=== PATIENT | female | born 1945 | race Caucasian/White ===

== ENCOUNTER 2018-01-25 09:48 | Inpatient (IN) ==
[2018-01-25] MEDS ORDERED: MORPHINE 4 MG/1 ML VIAL IV STA (11:10)
[2018-01-25] MEDS ORDERED: SODIUM CHLORIDE 0.9% 500 ML IV STA (11:10)
[2018-01-25] MEDS ORDERED: methylPREDNISolone SOD SUC 125 MG/2 ML VIAL IV STA (11:12)
[2018-01-25 11:21] LABS: Basophils % 0.3 % (0.0-0.8); Hematocrit 33.6 VOL% (35.7-47.0); Hemoglobin 10.2 GM/DL (12.0-16.0); Immature Granulocytes % 0.4 %; Immature Granulocytes Absolute 0.05 #; Lymphocytes # 0.5 10*3/uL (1.4-4.0); Lymphocytes % 3.6 % (21.3-54.2); Mean Corpuscular HGB Conc 30.4 GM/DL (32-36); Mean Corpuscular Hemoglobin 25 PG (27-34); Mean Corpuscular Volume 80.8 FL (87-102); Mean Platelet Volume 11.6 FL (9.6-12.0); Monocytes # 1.1 10*3/uL (0.11-0.8); Monocytes % 7.9 % (1.7-12.7); Neutrophils # 11.8 10*3/uL (1.4-7.4); Neutrophils % 87.8 % (38.7-73.9); Platelet Count 216 T/CUMM (130-400); Red Blood Count 4.16 MC/CUMM (3.8-5.5); White Blood Count 13.4 T/CUMM (4-12)
[2018-01-25 11:30] LABS: Albumin 3.6 G/DL (3.4-5.0); Bilirubin,Total 1.4 MG/DL (0.2-1.0); Calcium 9.1 MG/DL (8.5-10.1); Osmolality,Calculated 282.4 MOS/KG (273-304); Potassium 3.7 MMOL/L (3.5-5.1); Total Protein 8.5 G/DL (6.4-8.3)
[2018-01-25 11:55] LABS: Polychromasia Few; Segmented Neutrophils 92 % (50-85); Total Cells Counted 100
[2018-01-25 11:56] LABS: Hypochromasia Slight; Platelet Estimate Adequate; Stomatocytes Few
[2018-01-25] MEDS ORDERED: ENOXAPARIN 30 MG/0.3 ML SYRINGE IV STA (12:47)
[2018-01-25] MEDS ORDERED: ZALEPLON 5 MG CAPSULE PO PRN (12:58)
[2018-01-25] MEDS ORDERED: MORPHINE 4 MG/1 ML VIAL IV PRN (12:58)
[2018-01-25] MEDS ORDERED: ACETAMINOPHEN 325 MG TABLET PO PRN (12:58)
[2018-01-25] MEDS: ONDANSETRON 4 MG/2 ML VIAL IV PRN ×2 (14:02→16:13)
[2018-01-25] MEDS: SODIUM CHLORIDE 0.9% 1,000 ML IV SCH ×2 (14:17→23:01)
[2018-01-25] MEDS: FAMOTIDINE 20 MG/2 ML VIAL IV SCH (14:18)
[2018-01-25] MEDS: MEROPENEM 1,000 MG in SODIUM CHLORIDE 0.9% 100 ML IV SCH ×2 (14:18→22:01)
[2018-01-25] MEDS ORDERED: DIAZEPAM 5 MG TABLET PO ONE (16:11)
[2018-01-25] MEDS ORDERED: POTASSIUM CHLORIDE RIDER 10 MEQ in PREMIX 1 EACH IV PRN (16:11)
[2018-01-25] MEDS ORDERED: MAGNESIUM SULF RIDER 2 GM in PREMIX 1 EACH IV PRN (16:11)
[2018-01-25] MEDS ORDERED: diphenhydrAMINE CAP 25 MG CAPSULE PO ONE (16:11)
[2018-01-25] MEDS: ENOXAPARIN 80 MG/0.8 ML SYRINGE SUBCUT SCH (16:59)
[2018-01-26] MEDS: FAMOTIDINE 20 MG/2 ML VIAL IV SCH ×2 (01:40→14:33)
[2018-01-26 04:49] LABS: Basophils % 0.1 % (0.0-0.8); Hematocrit 27.2 VOL% (35.7-47.0); Hemoglobin 8.3 GM/DL (12.0-16.0); Immature Granulocytes % 0.4 %; Immature Granulocytes Absolute 0.06 #; Lymphocytes # 0.4 10*3/uL (1.4-4.0); Mean Corpuscular HGB Conc 30.5 GM/DL (32-36); Mean Corpuscular Hemoglobin 25 PG (27-34); Mean Corpuscular Volume 81.4 FL (87-102); Mean Platelet Volume 11.8 FL (9.6-12.0); Monocytes % 6.7 % (1.7-12.7); Neutrophils # 13.1 10*3/uL (1.4-7.4); Neutrophils % 89.8 % (38.7-73.9); Platelet Count 165 T/CUMM (130-400); Red Blood Count 3.34 MC/CUMM (3.8-5.5); Red Cell Distribution Width 15.9 % (9.3-17.3); White Blood Count 14.6 T/CUMM (4-12)
[2018-01-26] MEDS: ENOXAPARIN 80 MG/0.8 ML SYRINGE SUBCUT SCH (04:53)
[2018-01-26] MEDS: ONDANSETRON 4 MG/2 ML VIAL IV PRN (04:53)
[2018-01-26 05:17] LABS: Alanine Aminotransferase 12 U/L (13-56); Albumin 2.7 G/DL (3.4-5.0); Alkaline Phosphatase 117 U/L (45-117); Aspartate Amino Transferase 13 U/L (0-37); Blood Urea Nitrogen 19 MG/DL (7-18); Calcium 8.6 MG/DL (8.5-10.1); Glucose 110 MG/DL (74-106); Osmolality,Calculated 285.1 MOS/KG (273-304); Potassium 4.4 MMOL/L (3.5-5.1); Sodium 142 MMOL/L (136-145); Total Protein 6.6 G/DL (6.4-8.3); Troponin I < 0.015 NG/ML (0.00-0.045)
[2018-01-26 05:36] LABS: ABG Base Excess -1.4 MMOL/L (-2.5-2.5); ABG HCO3 23.2 MMOL/L (20-26); ABG Oxygen Saturation 96.6 % (95-100); ABG PCO2 37.4 MM HG (35-48); ABG PH 7.399 (7.35-7.45); ABG PO2 84.6 MM HG (80-95); ABG TCO2 21.3 MMOL/L (23-27); Allen Test Positive
[2018-01-26 05:37] LABS: Band Neutrophils 3 % (0-10); Lymphocytes 3 % (20-55); Myelocytes 1 %; Segmented Neutrophils 88 % (50-85); Total Cells Counted 100
[2018-01-26] MEDS: MEROPENEM 1,000 MG in SODIUM CHLORIDE 0.9% 100 ML IV SCH ×3 (05:37→22:57)
[2018-01-26 05:38] LABS: Hypochromasia 2+; Microcytosis 1+; Polychromasia Slight
[2018-01-26 05:39] LABS: Platelet Estimate Adequate
[2018-01-26] MEDS ORDERED: diphenhydrAMINE CAP 25 MG CAPSULE PO ONE (06:30)
[2018-01-26] MEDS ORDERED: DIAZEPAM 5 MG TABLET PO ONE (06:30)
[2018-01-26] MEDS: SODIUM CHLORIDE 0.9% 1,000 ML IV SCH ×3 (07:04→22:19)
[2018-01-26] MEDS ORDERED: ALTEPLASE 6 MG in SODIUM CHLORIDE 0.9% 120 ML IV SCH (08:00)
[2018-01-26] MEDS ORDERED: LIDOCAINE 1% 20 ML VIAL ONE (08:01)
[2018-01-26] MEDS ORDERED: HYDROmorphone 2 MG/1 ML VIAL ONE (08:02)
[2018-01-26] MEDS ORDERED: MIDAZOLAM 2 MG/2 ML VIAL ONE (08:02)
[2018-01-26] MEDS ORDERED: ONDANSETRON 4 MG/2 ML VIAL ONE (09:00)
[2018-01-26] MEDS: APIXABAN 5 MG TABLET PO SCH ×2 (18:08→22:30)
[2018-01-26] MEDS ORDERED: SODIUM CHLORIDE 0.9% 500 ML IV ONE (21:53)
[2018-01-27] MEDS: FAMOTIDINE 20 MG/2 ML VIAL IV SCH (02:09)
[2018-01-27] MEDS: SODIUM CHLORIDE 0.9% 1,000 ML IV SCH ×2 (02:10→06:13)
[2018-01-27] MEDS: MEROPENEM 1,000 MG in SODIUM CHLORIDE 0.9% 100 ML IV SCH ×3 (05:09→23:07)
[2018-01-27] MEDS ORDERED: DEXAMETHASONE INJ 20 MG in SODIUM CHLORIDE 0.9% 50 ML IV ONE (08:19)
[2018-01-27] MEDS: APIXABAN 5 MG TABLET PO SCH ×2 (10:08→20:20)
[2018-01-27] MEDS: FAMOTIDINE 20 MG TABLET PO SCH (20:22)
[2018-01-28] MEDS: MEROPENEM 1,000 MG in SODIUM CHLORIDE 0.9% 100 ML IV SCH (05:27)
[2018-01-28 05:40] LABS: Basophils % 0.1 % (0.0-0.8); Hematocrit 27.4 VOL% (35.7-47.0); Hemoglobin 8.3 GM/DL (12.0-16.0); Immature Granulocytes % 0.9 %; Immature Granulocytes Absolute 0.09 #; Lymphocytes # 0.4 10*3/uL (1.4-4.0); Mean Corpuscular HGB Conc 30.3 GM/DL (32-36); Mean Corpuscular Hemoglobin 25 PG (27-34); Mean Corpuscular Volume 80.8 FL (87-102); Monocytes # 0.3 10*3/uL (0.11-0.8); Monocytes % 3.2 % (1.7-12.7); Neutrophils # 9.3 10*3/uL (1.4-7.4); Neutrophils % 91.8 % (38.7-73.9); Platelet Count 189 T/CUMM (130-400); Red Blood Count 3.39 MC/CUMM (3.8-5.5); White Blood Count 10.2 T/CUMM (4-12)
[2018-01-28 06:08] LABS: Albumin 2.6 G/DL (3.4-5.0); Bilirubin,Total 0.4 MG/DL (0.2-1.0); Calcium 8.6 MG/DL (8.5-10.1); Potassium 4.1 MMOL/L (3.5-5.1); Total Protein 6.7 G/DL (6.4-8.3)
[2018-01-28 06:11] LABS: Hypochromasia 2+; Lymphocytes 3 % (20-55); Segmented Neutrophils 94 % (50-85); Total Cells Counted 100
[2018-01-28 06:12] LABS: Anisocytosis 1+; Microcytosis 1+; Platelet Estimate Adequate
[2018-01-28 07:36] VITALS: BP 122/79
[2018-01-28] MEDS: APIXABAN 5 MG TABLET PO SCH (09:14)
[2018-01-28] MEDS: FAMOTIDINE 20 MG TABLET PO SCH (09:14)
== END 2018-01-28 11:11 | disposition home or self-care (01) | DRG 175 ==
LOC: N.ED 09:48 → SUATTDRO 12:44 → N.EDINP 12:44 → N.CC 13:27 → N.5E 01-27 15:28
PROVIDERS: ADMIT Internal Medicine; ATTEND Internal Medicine

== ENCOUNTER 2018-09-14 16:00 | Inpatient (IN) ==
[2018-09-14] MEDS ORDERED: ONDANSETRON 4 MG/2 ML VIAL IV STA (16:18)
[2018-09-14] MEDS ORDERED: SODIUM CHLORIDE 0.9% 1,000 ML IV STA (16:18)
[2018-09-14 17:07] LABS: Apearance,Urine CLEAR (Clear); Bacteria,Urine Occasional /HPF (Few); Bilirubin,Urine Negative (Negative); Blood, Urine Negative (Negative); Glucose,Urine (UA) Negative (Negative); Ketones,Urine 20 mg/dL (Negative); Mucus,Urine Occasional /LPF (Occasional); Nitrite,Urine Negative (Negative); Protein,Urine Negative; RBC,Urine 4 /HPF (0-4); Urine Color Yellow (Yellow); Urine Specific Gravity 1.015 (1.001-1.035); Urine Urobilinogen < 2.0 EU/DL (0.2-1.0); WBC,Urine 10 /HPF (0-6)
[2018-09-14 17:13] LABS: Basophils % 0.2 % (0.0-0.8); Eosinophils % 0.8 % (0.00-10.9); Hematocrit 28.3 VOL% (35.7-47.0); Hemoglobin 8.9 GM/DL (12.0-16.0); Immature Granulocytes Absolute 0.05 #; Lymphocytes # 0.3 10*3/uL (1.4-4.0); Lymphocytes % 5.5 % (21.3-54.2); Mean Corpuscular HGB Conc 31.4 GM/DL (32-36); Mean Corpuscular Volume 92.8 FL (87-102); Mean Platelet Volume 10.9 FL (9.6-12.0); Monocytes % 9.2 % (1.7-12.7); Neutrophils % 83.3 % (38.7-73.9); Platelet Count 195 T/CUMM (130-400); Red Blood Count 3.05 MC/CUMM (3.8-5.5); Red Cell Distribution Width 19.5 % (9.3-17.3); White Blood Count 4.9 T/CUMM (4-12)
[2018-09-14 17:38] LABS: Albumin 2.6 G/DL (3.4-5.0); Bilirubin,Total 0.9 MG/DL (0.2-1.0); Calcium 8.7 MG/DL (8.5-10.1); Osmolality,Calculated 285.7 MOS/KG (273-304); Total Protein 6.6 G/DL (6.4-8.3)
[2018-09-14] MEDS ORDERED: POTASSIUM CHLORIDE 20 MEQ/15 ML UDCUP PO ONE (19:18)
[2018-09-14] MEDS: SODIUM CHLORIDE 0.9% 1,000 ML IV SCH (20:41)
[2018-09-14] MEDS: APIXABAN 5 MG TABLET PO SCH (21:38)
[2018-09-15 04:44] LABS: Basophils % 0.2 % (0.0-0.8); Eosinophils # 0.1 10*3/uL (0.0-0.87); Eosinophils % 1.4 % (0.00-10.9); Hematocrit 26.2 VOL% (35.7-47.0); Hemoglobin 8.1 GM/DL (12.0-16.0); Immature Granulocytes % 0.7 %; Immature Granulocytes Absolute 0.03 #; Lymphocytes # 0.2 10*3/uL (1.4-4.0); Mean Corpuscular HGB Conc 30.9 GM/DL (32-36); Mean Corpuscular Volume 93.9 FL (87-102); Mean Platelet Volume 10.8 FL (9.6-12.0); Monocytes % 10.8 % (1.7-12.7); Neutrophils % 81.9 % (38.7-73.9); Platelet Count 181 T/CUMM (130-400); Red Blood Count 2.79 MC/CUMM (3.8-5.5); Red Cell Distribution Width 19.5 % (9.3-17.3); White Blood Count 4.2 T/CUMM (4-12)
[2018-09-15 05:20] LABS: Albumin 2.4 G/DL (3.4-5.0); Bilirubin,Total 0.8 MG/DL (0.2-1.0); Calcium 8.1 MG/DL (8.5-10.1); Osmolality,Calculated 287.6 MOS/KG (273-304); Thyroid Stimulating Hormone 1.64 uIU/ml (0.358-3.74); Total Protein 5.9 G/DL (6.4-8.3)
[2018-09-15] MEDS: PANTOPRAZOLE 40 MG TABLET PO SCH (08:58)
[2018-09-15] MEDS: APIXABAN 5 MG TABLET PO SCH ×2 (08:58→20:48)
[2018-09-15] MEDS: CYANOCOBALAMIN 100 MCG TABLET PO SCH (08:58)
[2018-09-15] MEDS: POTASSIUM CHLORIDE 20 MEQ/15 ML UDCUP PO SCH (09:06)
[2018-09-15] MEDS: SODIUM CHLORIDE 0.9% 1,000 ML IV SCH (15:00)
[2018-09-15] MEDS ORDERED: POTASSIUM CHLORIDE 20 MEQ/15 ML UDCUP PO PRN (16:20)
[2018-09-15] MEDS: POTASSIUM CHLORIDE 20 MEQ TABLET PO PRN ×2 (17:48→20:48)
[2018-09-15] MEDS: guaiFENesin/CODEINE 5 ML LIQUID PO PRN (20:49)
[2018-09-16] MEDS: SODIUM CHLORIDE 0.9% 1,000 ML IV SCH (09:23)
[2018-09-16] MEDS: PANTOPRAZOLE 40 MG TABLET PO SCH (09:25)
[2018-09-16] MEDS: guaiFENesin/CODEINE 5 ML LIQUID PO PRN ×2 (09:25→20:30)
[2018-09-16] MEDS: APIXABAN 5 MG TABLET PO SCH ×2 (09:25→20:25)
[2018-09-16] MEDS: CYANOCOBALAMIN 100 MCG TABLET PO SCH (09:25)
[2018-09-16] MEDS: POTASSIUM CHLORIDE 20 MEQ/15 ML UDCUP PO SCH (09:28)
[2018-09-16] MEDS: POTASSIUM CHLORIDE 20 MEQ TABLET PO PRN ×2 (11:20→14:00)
[2018-09-16] MEDS: DEXT 5% NACL 0.45% KCL 20 MEQ 20 MEQ/1,000 ML BAG IV SCH (13:58)
[2018-09-16] MEDS: LOPERAMIDE 0.2 MG/ML 30 ML/BOTTLE PO PRN (14:36)
[2018-09-16] MEDS ORDERED: MAGNESIUM SULF RIDER 4 GM in PREMIX 1 EACH IV PRN (15:47)
[2018-09-16] MEDS: MAGNESIUM SULF RIDER 2 GM in PREMIX 1 EACH IV PRN (20:26)
[2018-09-17 05:42] LABS: Calcium 8.1 MG/DL (8.5-10.1); Osmolality,Calculated 296.1 MOS/KG (273-304)
[2018-09-17] MEDS: DEXT 5% NACL 0.45% KCL 20 MEQ 20 MEQ/1,000 ML BAG IV SCH (09:12)
[2018-09-17] MEDS: APIXABAN 5 MG TABLET PO SCH ×2 (09:12→20:49)
[2018-09-17] MEDS: CYANOCOBALAMIN 100 MCG TABLET PO SCH (09:13)
[2018-09-17] MEDS: PANTOPRAZOLE 40 MG TABLET PO SCH (09:13)
[2018-09-17] MEDS: POTASSIUM CHLORIDE 20 MEQ/15 ML UDCUP PO SCH (09:13)
[2018-09-17] MEDS: MAGNESIUM SULF RIDER 2 GM in PREMIX 1 EACH IV PRN (09:13)
[2018-09-17] MEDS: ONDANSETRON 4 MG/2 ML VIAL IV PRN (11:37)
[2018-09-17] MEDS: MAGNESIUM CHLORIDE 64 MG TABLET PO SCH ×2 (13:35→20:49)
[2018-09-17] MEDS: guaiFENesin/CODEINE 5 ML LIQUID PO PRN (20:50)
[2018-09-18] MEDS ORDERED: MIDAZOLAM 2 MG/2 ML VIAL ONE (06:54)
[2018-09-18 06:55] LABS: Calcium 8.4 MG/DL (8.5-10.1); Osmolality,Calculated 288.6 MOS/KG (273-304)
[2018-09-18] MEDS ORDERED: PROMETHAZINE 25 MG/1 ML VIAL IM ONE (07:00)
[2018-09-18] MEDS ORDERED: MEPERIDINE 50 MG/1 ML VIAL IM ONE (07:00)
[2018-09-18] MEDS ORDERED: LIDOCAINE 2% VISCOUS 100 ML BOTTLE SWISH/SPIT ONE (07:30)
[2018-09-18] MEDS ORDERED: MIDAZOLAM 2 MG/2 ML VIAL IV ONE (07:30)
[2018-09-18] MEDS ORDERED: LIDOCAINE 1% 20 ML VIAL MISC INJ ONE (07:30)
[2018-09-18] MEDS ORDERED: LIDOCAINE 2% 20 ML VIAL RESP TX ONE (07:30)
[2018-09-18] MEDS: APIXABAN 5 MG TABLET PO SCH ×2 (13:03→20:08)
[2018-09-18] MEDS: MAGNESIUM CHLORIDE 64 MG TABLET PO SCH ×2 (13:03→20:14)
[2018-09-18] MEDS: CYANOCOBALAMIN 100 MCG TABLET PO SCH (13:03)
[2018-09-18] MEDS: PANTOPRAZOLE 40 MG TABLET PO SCH (13:04)
[2018-09-18] MEDS: DEXT 5% NACL 0.45% KCL 20 MEQ 20 MEQ/1,000 ML BAG IV SCH (13:06)
[2018-09-18] MEDS: SODIUM CHLORIDE 0.45% 1,000 ML IV SCH (20:08)
[2018-09-19 05:01] LABS: Basophils % 0.2 % (0.0-0.8); Eosinophils # 0.1 10*3/uL (0.0-0.87); Eosinophils % 1.8 % (0.00-10.9); Hemoglobin 7.9 GM/DL (12.0-16.0); Immature Granulocytes % 0.9 %; Immature Granulocytes Absolute 0.04 #; Lymphocytes # 0.2 10*3/uL (1.4-4.0); Lymphocytes % 5.1 % (21.3-54.2); Mean Corpuscular HGB Conc 30.4 GM/DL (32-36); Mean Corpuscular Volume 95.9 FL (87-102); Mean Platelet Volume 11.3 FL (9.6-12.0); Monocytes % 12.5 % (1.7-12.7); Neutrophils % 79.5 % (38.7-73.9); Platelet Count 189 T/CUMM (130-400); Red Blood Count 2.71 MC/CUMM (3.8-5.5); Red Cell Distribution Width 19.8 % (9.3-17.3); White Blood Count 4.5 T/CUMM (4-12)
[2018-09-19] MEDS: MAGNESIUM CHLORIDE 64 MG TABLET PO SCH ×2 (10:19→20:34)
[2018-09-19] MEDS: CYANOCOBALAMIN 100 MCG TABLET PO SCH (10:19)
[2018-09-19] MEDS: LOPERAMIDE 0.2 MG/ML 30 ML/BOTTLE PO PRN (10:20)
[2018-09-19] MEDS: APIXABAN 5 MG TABLET PO SCH ×2 (10:20→20:34)
[2018-09-19] MEDS: PANTOPRAZOLE 40 MG TABLET PO SCH (10:20)
[2018-09-19] MEDS ORDERED: SODIUM CHLORIDE 0.9% 1,000 ML IV PRN ×2 (10:40→11:35)
[2018-09-19 11:17] LABS: Calcium 8.5 MG/DL (8.5-10.1); Osmolality,Calculated 279.3 MOS/KG (273-304)
[2018-09-19] MEDS: POTASSIUM CHLORIDE 20 MEQ TABLET PO PRN ×4 (11:32→17:42)
[2018-09-19] MEDS: SODIUM CHLORIDE 0.45% 1,000 ML IV SCH (14:07)
[2018-09-19] MEDS: guaiFENesin/CODEINE 5 ML LIQUID PO PRN (20:39)
[2018-09-19] MEDS: ONDANSETRON 4 MG/2 ML VIAL IV PRN (20:58)
[2018-09-20 05:58] LABS: Basophils % 0.2 % (0.0-0.8); Eosinophils # 0.1 10*3/uL (0.0-0.87); Hematocrit 31.6 VOL% (35.7-47.0); Hemoglobin 10.2 GM/DL (12.0-16.0); Immature Granulocytes % 1.2 %; Immature Granulocytes Absolute 0.05 #; Lymphocytes # 0.2 10*3/uL (1.4-4.0); Lymphocytes % 4.4 % (21.3-54.2); Mean Corpuscular HGB Conc 32.3 GM/DL (32-36); Mean Corpuscular Volume 93.8 FL (87-102); Mean Platelet Volume 11.1 FL (9.6-12.0); Monocytes % 12.8 % (1.7-12.7); Neutrophils % 79.4 % (38.7-73.9); Platelet Count 149 T/CUMM (130-400); Red Blood Count 3.37 MC/CUMM (3.8-5.5); Red Cell Distribution Width 18.9 % (9.3-17.3); White Blood Count 4.1 T/CUMM (4-12)
[2018-09-20 06:21] LABS: Lymphocytes 4 % (20-55); Segmented Neutrophils 85 % (50-85); Total Cells Counted 100
[2018-09-20 06:22] LABS: Anisocytosis 1+; Ovalocytes 1+
[2018-09-20 06:23] LABS: Platelet Estimate Adequate
[2018-09-20 06:39] LABS: Albumin 2.2 G/DL (3.4-5.0); Bilirubin,Total 1.4 MG/DL (0.2-1.0); Calcium 8.6 MG/DL (8.5-10.1); Total Protein 5.6 G/DL (6.4-8.3)
[2018-09-20] MEDS: POTASSIUM CHLORIDE 20 MEQ TABLET PO PRN (09:59)
[2018-09-20] MEDS: PANTOPRAZOLE 40 MG TABLET PO SCH (09:59)
[2018-09-20] MEDS: guaiFENesin/CODEINE 5 ML LIQUID PO PRN ×2 (09:59→17:04)
[2018-09-20] MEDS: APIXABAN 5 MG TABLET PO SCH ×2 (09:59→21:28)
[2018-09-20] MEDS: MAGNESIUM CHLORIDE 64 MG TABLET PO SCH ×2 (09:59→21:27)
[2018-09-20] MEDS: CYANOCOBALAMIN 100 MCG TABLET PO SCH (10:00)
[2018-09-20] MEDS: SODIUM CHLORIDE 0.45% 1,000 ML IV SCH (16:03)
[2018-09-21] MEDS: SODIUM CHLORIDE 0.45% 1,000 ML IV SCH (04:59)
[2018-09-21] MEDS: APIXABAN 5 MG TABLET PO SCH ×2 (09:27→20:41)
[2018-09-21] MEDS: CYANOCOBALAMIN 100 MCG TABLET PO SCH (09:27)
[2018-09-21] MEDS: PANTOPRAZOLE 40 MG TABLET PO SCH (09:27)
[2018-09-21] MEDS: MAGNESIUM CHLORIDE 64 MG TABLET PO SCH ×2 (09:27→22:05)
[2018-09-21] MEDS: ONDANSETRON 4 MG/2 ML VIAL IV PRN (14:13)
[2018-09-21] MEDS: guaiFENesin/CODEINE 5 ML LIQUID PO PRN (20:42)
[2018-09-22] MEDS: SODIUM CHLORIDE 0.45% 1,000 ML IV SCH (01:26)
[2018-09-22] MEDS: ONDANSETRON 4 MG/2 ML VIAL IV PRN (02:06)
[2018-09-22] MEDS ORDERED: DEXAMETHASONE INJ 20 MG in SODIUM CHLORIDE 0.9% 50 ML IV ONE (08:28)
[2018-09-22] MEDS: APIXABAN 5 MG TABLET PO SCH ×2 (08:49→21:03)
[2018-09-22] MEDS: CYANOCOBALAMIN 100 MCG TABLET PO SCH (08:49)
[2018-09-22] MEDS: MAGNESIUM CHLORIDE 64 MG TABLET PO SCH ×2 (08:49→21:03)
[2018-09-22] MEDS: PANTOPRAZOLE 40 MG TABLET PO SCH (08:50)
[2018-09-22] MEDS ORDERED: SODIUM CHLORIDE 0.9% IV ONE (09:00)
[2018-09-22] MEDS ORDERED: CYCLOPHOSPHAMIDE IV ONE (09:00)
[2018-09-22] MEDS ORDERED: DOXORUBICIN IV ONE (09:00)
[2018-09-22] MEDS ORDERED: vinCRIStine 2 MG in SYRINGE 1 EACH IV ONE (09:00)
[2018-09-22 09:10] LABS: Basophils % 0.5 % (0.0-0.8); Eosinophils # 0.1 10*3/uL (0.0-0.87); Eosinophils % 1.1 % (0.00-10.9); Hematocrit 36.1 VOL% (35.7-47.0); Immature Granulocytes % 1.1 %; Immature Granulocytes Absolute 0.07 #; Lymphocytes # 0.3 10*3/uL (1.4-4.0); Lymphocytes % 4.8 % (21.3-54.2); Mean Corpuscular HGB Conc 30.5 GM/DL (32-36); Mean Platelet Volume 10.8 FL (9.6-12.0); Monocytes % 9.3 % (1.7-12.7); Neutrophils % 83.2 % (38.7-73.9); Platelet Count 187 T/CUMM (130-400); Red Blood Count 3.72 MC/CUMM (3.8-5.5); Red Cell Distribution Width 18.7 % (9.3-17.3); White Blood Count 6.3 T/CUMM (4-12)
[2018-09-22 09:28] LABS: Band Neutrophils 1 % (0-10); Eosinophils 1 % (0-10); Lymphocytes 2 % (20-55); Platelet Estimate Adequate; Segmented Neutrophils 85 % (50-85); Total Cells Counted 100
[2018-09-22 09:29] LABS: Hypochromasia 1+
[2018-09-22] MEDS: GRANISETRON 1 MG/1 ML VIAL IV SCH (11:21)
[2018-09-22] MEDS: guaiFENesin/CODEINE 5 ML LIQUID PO PRN ×2 (14:34→21:03)
[2018-09-23] MEDS: SODIUM CHLORIDE 0.45% 1,000 ML IV SCH (01:39)
[2018-09-23] MEDS ORDERED: DEXAMETHASONE INJ 20 MG in SODIUM CHLORIDE 0.9% 50 ML IV ONE (07:21)
[2018-09-23] MEDS ORDERED: SODIUM CHLORIDE 0.9% IV ONE ×3 (09:00→15:14)
[2018-09-23] MEDS ORDERED: RITUXIMAB IV ONE ×3 (09:00→15:14)
[2018-09-23] MEDS: GRANISETRON 1 MG/1 ML VIAL IV SCH (11:03)
[2018-09-23] MEDS: APIXABAN 5 MG TABLET PO SCH ×2 (11:03→20:31)
[2018-09-23] MEDS: LOPERAMIDE 0.2 MG/ML 30 ML/BOTTLE PO PRN (11:03)
[2018-09-23] MEDS: PANTOPRAZOLE 40 MG TABLET PO SCH (11:03)
[2018-09-23] MEDS: MAGNESIUM CHLORIDE 64 MG TABLET PO SCH ×2 (11:03→20:30)
[2018-09-23] MEDS: CYANOCOBALAMIN 100 MCG TABLET PO SCH (11:03)
[2018-09-24 04:47] LABS: Hematocrit 30.4 VOL% (35.7-47.0); Hemoglobin 9.8 GM/DL (12.0-16.0); Immature Granulocytes % 0.6 %; Immature Granulocytes Absolute 0.04 #; Lymphocytes # 0.1 10*3/uL (1.4-4.0); Lymphocytes % 1.6 % (21.3-54.2); Mean Corpuscular HGB Conc 32.2 GM/DL (32-36); Mean Corpuscular Volume 94.1 FL (87-102); Mean Platelet Volume 11.2 FL (9.6-12.0); Monocytes % 4.5 % (1.7-12.7); Neutrophils % 93.3 % (38.7-73.9); Platelet Count 173 T/CUMM (130-400); Red Blood Count 3.23 MC/CUMM (3.8-5.5); Red Cell Distribution Width 17.5 % (9.3-17.3); White Blood Count 6.5 T/CUMM (4-12)
[2018-09-24 05:08] LABS: Albumin 2.2 G/DL (3.4-5.0); Bilirubin,Total 0.5 MG/DL (0.2-1.0); Calcium 9.1 MG/DL (8.5-10.1); Osmolality,Calculated 285.8 MOS/KG (273-304)
[2018-09-24 05:14] LABS: Lymphocytes 2 % (20-55); Platelet Estimate Adequate; Segmented Neutrophils 94 % (50-85); Total Cells Counted 100
[2018-09-24 05:15] LABS: Hypochromasia 1+; Ovalocytes Slight
[2018-09-24] MEDS: SODIUM CHLORIDE 0.45% 1,000 ML IV SCH (05:25)
[2018-09-24] MEDS: APIXABAN 5 MG TABLET PO SCH ×2 (08:41→22:24)
[2018-09-24] MEDS: MAGNESIUM CHLORIDE 64 MG TABLET PO SCH ×2 (08:41→22:23)
[2018-09-24] MEDS: PANTOPRAZOLE 40 MG TABLET PO SCH (08:41)
[2018-09-24] MEDS: CYANOCOBALAMIN 100 MCG TABLET PO SCH (08:41)
[2018-09-24] MEDS: GRANISETRON 1 MG/1 ML VIAL IV SCH (08:41)
[2018-09-24] MEDS: ALBUTEROL/IPRATROPIUM 3 ML NEB RESP TX SCH ×3 (10:56→19:51)
[2018-09-25] MEDS: ALBUTEROL/IPRATROPIUM 3 ML NEB RESP TX SCH ×4 (00:53→19:59)
[2018-09-25] MEDS: BISACODYL 5 MG TABLET PO PRN (01:50)
[2018-09-25] MEDS: LOPERAMIDE 0.2 MG/ML 30 ML/BOTTLE PO PRN ×2 (01:52→11:26)
[2018-09-25] MEDS: ONDANSETRON 4 MG/2 ML VIAL IV PRN (06:35)
[2018-09-25 08:57] LABS: Basophils % 0.2 % (0.0-0.8); Eosinophils % 0.2 % (0.00-10.9); Hematocrit 32.2 VOL% (35.7-47.0); Immature Granulocytes % 0.4 %; Immature Granulocytes Absolute 0.02 #; Lymphocytes # 0.1 10*3/uL (1.4-4.0); Lymphocytes % 2.3 % (21.3-54.2); Mean Corpuscular HGB Conc 31.1 GM/DL (32-36); Mean Platelet Volume 11.1 FL (9.6-12.0); Monocytes % 0.8 % (1.7-12.7); Neutrophils % 96.1 % (38.7-73.9); Platelet Count 175 T/CUMM (130-400); Red Blood Count 3.32 MC/CUMM (3.8-5.5); White Blood Count 4.7 T/CUMM (4-12)
[2018-09-25] MEDS: GRANISETRON 1 MG/1 ML VIAL IV SCH (09:05)
[2018-09-25] MEDS: MAGNESIUM CHLORIDE 64 MG TABLET PO SCH ×2 (09:07→20:26)
[2018-09-25] MEDS: CYANOCOBALAMIN 100 MCG TABLET PO SCH (09:07)
[2018-09-25] MEDS: PANTOPRAZOLE 40 MG TABLET PO SCH (09:07)
[2018-09-25] MEDS: APIXABAN 5 MG TABLET PO SCH ×2 (09:07→20:25)
[2018-09-25 09:17] LABS: Band Neutrophils 3 % (0-10); Hypochromasia 1+; Lymphocytes 1 % (20-55); Platelet Estimate Adequate; Segmented Neutrophils 92 % (50-85); Total Cells Counted 100
[2018-09-26] MEDS: ALBUTEROL/IPRATROPIUM 3 ML NEB RESP TX SCH ×4 (01:20→20:07)
[2018-09-26] MEDS: ONDANSETRON 4 MG/2 ML VIAL IV PRN ×2 (05:09→18:23)
[2018-09-26] MEDS: MAGNESIUM CHLORIDE 64 MG TABLET PO SCH ×2 (08:59→20:27)
[2018-09-26] MEDS: APIXABAN 5 MG TABLET PO SCH ×2 (09:00→20:27)
[2018-09-26] MEDS: CYANOCOBALAMIN 100 MCG TABLET PO SCH (09:00)
[2018-09-26] MEDS: GRANISETRON 1 MG/1 ML VIAL IV SCH (09:00)
[2018-09-26] MEDS: PANTOPRAZOLE 40 MG TABLET PO SCH (09:00)
[2018-09-26] MEDS: ACETAMINOPHEN 325 MG TABLET PO PRN (18:29)
[2018-09-27] MEDS ORDERED: MORPHINE 4 MG/1 ML VIAL IV PRN (01:29)
[2018-09-27] MEDS: ACETAMINOPHEN 325 MG TABLET PO PRN (01:48)
[2018-09-27] MEDS: ALBUTEROL/IPRATROPIUM 3 ML NEB RESP TX SCH ×4 (02:06→20:03)
[2018-09-27] MEDS: LOPERAMIDE 0.2 MG/ML 30 ML/BOTTLE PO PRN (06:42)
[2018-09-27] MEDS: MAGNESIUM CHLORIDE 64 MG TABLET PO SCH ×2 (09:00→21:17)
[2018-09-27] MEDS: APIXABAN 5 MG TABLET PO SCH ×2 (09:00→21:17)
[2018-09-27] MEDS: CHOLECALCIFEROL 1,000 UNIT TABLET PO SCH (09:00)
[2018-09-27] MEDS: PANTOPRAZOLE 40 MG TABLET PO SCH (09:00)
[2018-09-27] MEDS: CYANOCOBALAMIN 100 MCG TABLET PO SCH (09:00)
[2018-09-27] MEDS: GRANISETRON 1 MG/1 ML VIAL IV SCH (09:00)
[2018-09-27 11:21] LABS: Basophils % 1.3 % (0.0-0.8); Eosinophils # 0.1 10*3/uL (0.0-0.87); Eosinophils % 1.7 % (0.00-10.9); Hematocrit 30.9 VOL% (35.7-47.0); Hemoglobin 9.7 GM/DL (12.0-16.0); Immature Granulocytes Absolute 0.06 #; Lymphocytes # 0.1 10*3/uL (1.4-4.0); Lymphocytes % 2.7 % (21.3-54.2); Mean Corpuscular HGB Conc 31.4 GM/DL (32-36); Mean Corpuscular Volume 95.7 FL (87-102); Mean Platelet Volume 11.3 FL (9.6-12.0); Neutrophils % 91.3 % (38.7-73.9); Platelet Count 148 T/CUMM (130-400); Red Blood Count 3.23 MC/CUMM (3.8-5.5); Red Cell Distribution Width 17.2 % (9.3-17.3)
[2018-09-27 11:43] LABS: Calcium 9.7 MG/DL (8.5-10.1); Osmolality,Calculated 282.8 MOS/KG (273-304)
[2018-09-27 13:01] LABS: Eosinophils 2 % (0-10); Hypochromasia 1+; Lymphocytes 4 % (20-55); Segmented Neutrophils 93 % (50-85); Total Cells Counted 100
[2018-09-27 13:02] LABS: Microcytosis 1+; Ovalocytes Slight; Platelet Estimate Adequate
[2018-09-27] MEDS ORDERED: FAMOTIDINE 20 MG TABLET PO ONE (17:48)
[2018-09-27] MEDS: POTASSIUM CHLORIDE 20 MEQ TABLET PO PRN ×3 (19:42→22:52)
[2018-09-28] MEDS: ALBUTEROL/IPRATROPIUM 3 ML NEB RESP TX SCH ×4 (00:41→19:00)
[2018-09-28 04:08] LABS: Basophils % 1.7 % (0.0-0.8); Eosinophils % 1.7 % (0.00-10.9); Hematocrit 28.3 VOL% (35.7-47.0); Hemoglobin 8.7 GM/DL (12.0-16.0); Immature Granulocytes % 9.5 %; Immature Granulocytes Absolute 0.11 #; Lymphocytes % 1.7 % (21.3-54.2); Mean Corpuscular HGB Conc 30.7 GM/DL (32-36); Mean Corpuscular Volume 96.3 FL (87-102); Mean Platelet Volume 10.6 FL (9.6-12.0); Monocytes % 1.7 % (1.7-12.7); Neutrophils % 83.7 % (38.7-73.9); Platelet Count 116 T/CUMM (130-400); Red Blood Count 2.94 MC/CUMM (3.8-5.5); Red Cell Distribution Width 17.2 % (9.3-17.3); White Blood Count 1.2 T/CUMM (4-12)
[2018-09-28 04:29] LABS: Calcium 8.6 MG/DL (8.5-10.1); Osmolality,Calculated 289.4 MOS/KG (273-304)
[2018-09-28 04:31] LABS: Eosinophils 2 % (0-10); Hypochromasia 1+; Lymphocytes 2 % (20-55); Microcytosis 1+; Ovalocytes Slight; Platelet Estimate Decreased; Segmented Neutrophils 95 % (50-85); Total Cells Counted 100
[2018-09-28] MEDS: LOPERAMIDE 0.2 MG/ML 30 ML/BOTTLE PO PRN (05:33)
[2018-09-28] MEDS: CYANOCOBALAMIN 100 MCG TABLET PO SCH (09:38)
[2018-09-28] MEDS: MAGNESIUM CHLORIDE 64 MG TABLET PO SCH ×2 (09:38→20:24)
[2018-09-28] MEDS: APIXABAN 5 MG TABLET PO SCH ×2 (09:38→20:24)
[2018-09-28] MEDS: CHOLECALCIFEROL 1,000 UNIT TABLET PO SCH (09:38)
[2018-09-28] MEDS: PANTOPRAZOLE 40 MG TABLET PO SCH (09:38)
[2018-09-28] MEDS: FILGRASTIM-SNDZ 300 MCG/0.5 ML SYRINGE SUBCUT SCH (09:38)
[2018-09-28] MEDS: GRANISETRON 1 MG/1 ML VIAL IV SCH (09:39)
[2018-09-28] MEDS: ACETAMINOPHEN 325 MG TABLET PO PRN (22:23)
[2018-09-29] MEDS: ALBUTEROL/IPRATROPIUM 3 ML NEB RESP TX SCH ×4 (00:35→19:48)
[2018-09-29] MEDS ORDERED: HEPARIN LOCK FLUSH 500 UNIT/5 ML SYRINGE IV ONE (05:22)
[2018-09-29 06:12] LABS: Basophils % 2.9 % (0.0-0.8); Eosinophils % 5.9 % (0.00-10.9); Hematocrit 27.9 VOL% (35.7-47.0); Hemoglobin 8.7 GM/DL (12.0-16.0); Immature Granulocytes % 5.9 %; Immature Granulocytes Absolute 0.02 #; Lymphocytes % 8.8 % (21.3-54.2); Mean Corpuscular HGB Conc 31.2 GM/DL (32-36); Mean Corpuscular Volume 95.2 FL (87-102); Mean Platelet Volume 11.2 FL (9.6-12.0); Monocytes % 2.9 % (1.7-12.7); Neutrophils % 73.6 % (38.7-73.9); Red Blood Count 2.93 MC/CUMM (3.8-5.5); Red Cell Distribution Width 16.7 % (9.3-17.3)
[2018-09-29 06:15] LABS: Platelet Count 89 T/CUMM (130-400)
[2018-09-29 06:16] LABS: White Blood Count 0.3 T/CUMM (4-12)
[2018-09-29 06:22] LABS: Osmolality,Calculated 287.6 MOS/KG (273-304)
[2018-09-29 06:36] LABS: Eosinophils 5 % (0-10); Hypochromasia 1+; Lymphocytes 4 % (20-55); Platelet Estimate Decreased; Segmented Neutrophils 87 % (50-85); Total Cells Counted 100
[2018-09-29 06:37] LABS: Microcytosis 1+
[2018-09-29] MEDS: APIXABAN 5 MG TABLET PO SCH ×2 (10:07→20:03)
[2018-09-29] MEDS: MAGNESIUM CHLORIDE 64 MG TABLET PO SCH ×2 (10:07→20:03)
[2018-09-29] MEDS: PANTOPRAZOLE 40 MG TABLET PO SCH (10:07)
[2018-09-29] MEDS: CHOLECALCIFEROL 1,000 UNIT TABLET PO SCH (10:07)
[2018-09-29] MEDS: CYANOCOBALAMIN 100 MCG TABLET PO SCH (10:07)
[2018-09-29] MEDS: GRANISETRON 1 MG/1 ML VIAL IV SCH (10:08)
[2018-09-29] MEDS: FILGRASTIM-SNDZ 300 MCG/0.5 ML SYRINGE SUBCUT SCH (10:08)
[2018-09-29] MEDS: POTASSIUM CHLORIDE 20 MEQ TABLET PO PRN (10:08)
[2018-09-29] MEDS: ONDANSETRON 4 MG/2 ML VIAL IV PRN (11:40)
[2018-09-29] MEDS: POTASSIUM CHLORIDE RIDER 10 MEQ in PREMIX 1 EACH IV PRN ×5 (13:38→22:08)
[2018-09-29] MEDS: ACETAMINOPHEN 325 MG TABLET PO PRN (13:43)
[2018-09-29] MEDS: BENZONATATE 100 MG CAPSULE PO PRN (15:53)
[2018-09-30] MEDS: ALBUTEROL/IPRATROPIUM 3 ML NEB RESP TX SCH ×4 (02:15→19:03)
[2018-09-30] MEDS ORDERED: HEPARIN LOCK FLUSH 500 UNIT/5 ML SYRINGE IV ONE (03:44)
[2018-09-30 04:26] LABS: Eosinophils % 18.2 % (0.00-10.9); Hematocrit 27.1 VOL% (35.7-47.0); Hemoglobin 8.5 GM/DL (12.0-16.0); Immature Granulocytes % 9.1 %; Immature Granulocytes Absolute 0.01 #; Lymphocytes % 36.4 % (21.3-54.2); Mean Corpuscular HGB Conc 31.4 GM/DL (32-36); Mean Corpuscular Volume 95.4 FL (87-102); Mean Platelet Volume 11.1 FL (9.6-12.0); Monocytes % 18.2 % (1.7-12.7); Neutrophils % 18.1 % (38.7-73.9); Platelet Count 82 T/CUMM (130-400); Red Blood Count 2.84 MC/CUMM (3.8-5.5); Red Cell Distribution Width 16.3 % (9.3-17.3)
[2018-09-30 04:57] LABS: White Blood Count 0.1 T/CUMM (4-12)
[2018-09-30 05:04] LABS: Eosinophils 20 % (0-10); Hypochromasia 1+; Lymphocytes 60 % (20-55); Microcytosis 1+; Ovalocytes Slight; Platelet Estimate Decreased; Segmented Neutrophils 20 % (50-85); Total Cells Counted 100
[2018-09-30] MEDS ORDERED: SODIUM CHLORIDE 0.9% 1,000 ML IV PRN (08:09)
[2018-09-30] MEDS: MAGNESIUM CHLORIDE 64 MG TABLET PO SCH ×2 (08:23→20:50)
[2018-09-30] MEDS: PANTOPRAZOLE 40 MG TABLET PO SCH (08:24)
[2018-09-30] MEDS: CHOLECALCIFEROL 1,000 UNIT TABLET PO SCH (08:24)
[2018-09-30] MEDS: BENZONATATE 100 MG CAPSULE PO PRN ×3 (08:24→16:51)
[2018-09-30] MEDS: APIXABAN 5 MG TABLET PO SCH ×2 (08:24→20:50)
[2018-09-30] MEDS: FILGRASTIM-SNDZ 300 MCG/0.5 ML SYRINGE SUBCUT SCH (08:24)
[2018-09-30] MEDS: CYANOCOBALAMIN 100 MCG TABLET PO SCH (08:24)
[2018-09-30] MEDS: GRANISETRON 1 MG/1 ML VIAL IV SCH (08:27)
[2018-09-30] MEDS: LOPERAMIDE 0.2 MG/ML 30 ML/BOTTLE PO PRN (09:09)
[2018-10-01] MEDS: ALBUTEROL/IPRATROPIUM 3 ML NEB RESP TX SCH ×4 (00:45→19:40)
[2018-10-01 06:11] LABS: Hematocrit 33.8 VOL% (35.7-47.0); Hemoglobin 10.8 GM/DL (12.0-16.0); Lymphocytes % 37.5 % (21.3-54.2); Mean Corpuscular Volume 94.2 FL (87-102); Mean Platelet Volume 10.4 FL (9.6-12.0); Neutrophils % 12.5 % (38.7-73.9); Red Blood Count 3.59 MC/CUMM (3.8-5.5); Red Cell Distribution Width 15.4 % (9.3-17.3)
[2018-10-01 06:23] LABS: Platelet Count 52 T/CUMM (130-400)
[2018-10-01 06:24] LABS: Albumin 2.6 G/DL (3.4-5.0); Bilirubin,Total 1.1 MG/DL (0.2-1.0); Calcium 8.9 MG/DL (8.5-10.1); Osmolality,Calculated 283.8 MOS/KG (273-304); Total Protein 6.3 G/DL (6.4-8.3); White Blood Count 0.1 T/CUMM (4-12)
[2018-10-01 06:37] LABS: Eosinophils 20 % (0-10); Hypochromasia 1+; Lymphocytes 40 % (20-55); Ovalocytes Slight; Platelet Estimate Decreased; Total Cells Counted 100
[2018-10-01 06:38] LABS: Microcytosis 1+
[2018-10-01] MEDS: MAGNESIUM CHLORIDE 64 MG TABLET PO SCH ×2 (09:33→21:31)
[2018-10-01] MEDS: CYANOCOBALAMIN 100 MCG TABLET PO SCH (09:34)
[2018-10-01] MEDS: CHOLECALCIFEROL 1,000 UNIT TABLET PO SCH (09:34)
[2018-10-01] MEDS: PANTOPRAZOLE 40 MG TABLET PO SCH (09:34)
[2018-10-01] MEDS: APIXABAN 5 MG TABLET PO SCH ×2 (09:34→21:31)
[2018-10-01] MEDS: GRANISETRON 1 MG/1 ML VIAL IV SCH (09:34)
[2018-10-01] MEDS: FILGRASTIM-SNDZ 300 MCG/0.5 ML SYRINGE SUBCUT SCH (09:35)
[2018-10-01] MEDS: BENZONATATE 100 MG CAPSULE PO PRN (09:45)
[2018-10-01] MEDS: ONDANSETRON 4 MG/2 ML VIAL IV PRN ×2 (13:18→21:26)
[2018-10-02] MEDS: ALBUTEROL/IPRATROPIUM 3 ML NEB RESP TX SCH ×4 (00:50→19:34)
[2018-10-02 05:42] LABS: Eosinophils % 14.3 % (0.00-10.9); Hematocrit 33.2 VOL% (35.7-47.0); Hemoglobin 10.8 GM/DL (12.0-16.0); Lymphocytes % 21.4 % (21.3-54.2); Mean Corpuscular HGB Conc 32.5 GM/DL (32-36); Mean Corpuscular Volume 93.8 FL (87-102); Mean Platelet Volume 11.3 FL (9.6-12.0); Monocytes % 35.7 % (1.7-12.7); Neutrophils % 28.6 % (38.7-73.9); Red Blood Count 3.54 MC/CUMM (3.8-5.5); Red Cell Distribution Width 15.2 % (9.3-17.3)
[2018-10-02 05:47] LABS: Platelet Count 38 T/CUMM (130-400); White Blood Count 0.1 T/CUMM (4-12)
[2018-10-02 06:04] LABS: Albumin 2.6 G/DL (3.4-5.0); Calcium 9.2 MG/DL (8.5-10.1); Total Protein 6.6 G/DL (6.4-8.3)
[2018-10-02 06:17] LABS: Eosinophils 20 % (0-10); Hypochromasia 1+; Lymphocytes 60 % (20-55); Microcytosis 1+; Ovalocytes Slight; Platelet Estimate Decreased; Segmented Neutrophils 20 % (50-85); Total Cells Counted 100
[2018-10-02] MEDS: FILGRASTIM-SNDZ 300 MCG/0.5 ML SYRINGE SUBCUT SCH (09:34)
[2018-10-02] MEDS: GRANISETRON 1 MG/1 ML VIAL IV SCH (09:35)
[2018-10-02] MEDS: CHOLECALCIFEROL 1,000 UNIT TABLET PO SCH (09:35)
[2018-10-02] MEDS: APIXABAN 5 MG TABLET PO SCH ×2 (09:35→21:25)
[2018-10-02] MEDS: MAGNESIUM CHLORIDE 64 MG TABLET PO SCH ×2 (09:35→21:25)
[2018-10-02] MEDS: CYANOCOBALAMIN 100 MCG TABLET PO SCH (09:35)
[2018-10-02] MEDS: SULFAMETHOX/TRIMETHOPRIM 800-160 MG TABLET PO SCH (11:15)
[2018-10-02] MEDS: LOPERAMIDE 0.2 MG/ML 30 ML/BOTTLE PO PRN (11:15)
[2018-10-02] MEDS: PHENOL 1.4% THROAT SPRAY 177 ML BOTTLE PO PRN (21:25)
[2018-10-03] MEDS: ALBUTEROL/IPRATROPIUM 3 ML NEB RESP TX SCH ×4 (01:41→20:00)
[2018-10-03] MEDS: ONDANSETRON 4 MG/2 ML VIAL IV PRN (03:05)
[2018-10-03] MEDS: PHENOL 1.4% THROAT SPRAY 177 ML BOTTLE PO PRN (03:05)
[2018-10-03 06:25] LABS: Basophils % 4.2 % (0.0-0.8); Eosinophils % 2.1 % (0.00-10.9); Lymphocytes % 4.2 % (21.3-54.2); Mean Corpuscular HGB Conc 32.4 GM/DL (32-36); Mean Corpuscular Volume 93.7 FL (87-102); Mean Platelet Volume 11.4 FL (9.6-12.0); Monocytes % 16.7 % (1.7-12.7); Neutrophils % 72.8 % (38.7-73.9); Red Blood Count 3.63 MC/CUMM (3.8-5.5); Red Cell Distribution Width 15.2 % (9.3-17.3)
[2018-10-03 06:33] LABS: White Blood Count 0.5 T/CUMM (4-12)
[2018-10-03 06:34] LABS: Platelet Count 33 T/CUMM (130-400)
[2018-10-03 06:57] LABS: Anisocytosis 1+; Band Neutrophils 16 % (0-10); Eosinophils 4 % (0-10); Lymphocytes 12 % (20-55); Myelocytes 4 %; Ovalocytes 1+; Segmented Neutrophils 36 % (50-85); Total Cells Counted 100
[2018-10-03 06:58] LABS: Platelet Estimate Decreased
[2018-10-03 07:03] LABS: Albumin 2.6 G/DL (3.4-5.0); Bilirubin,Total 0.8 MG/DL (0.2-1.0); Calcium 9.4 MG/DL (8.5-10.1); Osmolality,Calculated 283.8 MOS/KG (273-304); Total Protein 6.7 G/DL (6.4-8.3)
[2018-10-03] MEDS: FILGRASTIM-SNDZ 300 MCG/0.5 ML SYRINGE SUBCUT SCH (09:40)
[2018-10-03] MEDS: MAGNESIUM CHLORIDE 64 MG TABLET PO SCH ×2 (09:41→22:40)
[2018-10-03] MEDS: CYANOCOBALAMIN 100 MCG TABLET PO SCH (09:41)
[2018-10-03] MEDS: POTASSIUM CHLORIDE 20 MEQ TABLET PO PRN (09:41)
[2018-10-03] MEDS: APIXABAN 5 MG TABLET PO SCH ×2 (09:41→22:40)
[2018-10-03] MEDS: SULFAMETHOX/TRIMETHOPRIM 800-160 MG TABLET PO SCH (09:41)
[2018-10-03] MEDS: CHOLECALCIFEROL 1,000 UNIT TABLET PO SCH (09:41)
[2018-10-03] MEDS: GRANISETRON 1 MG/1 ML VIAL IV SCH (09:42)
[2018-10-04] MEDS: ALBUTEROL/IPRATROPIUM 3 ML NEB RESP TX SCH ×4 (00:11→19:20)
[2018-10-04] MEDS: PHENOL 1.4% THROAT SPRAY 177 ML BOTTLE PO PRN (03:50)
[2018-10-04 04:54] LABS: Albumin 2.9 G/DL (3.4-5.0); Bilirubin,Total 0.7 MG/DL (0.2-1.0); Calcium 9.3 MG/DL (8.5-10.1); Osmolality,Calculated 284.8 MOS/KG (273-304); Total Protein 7.2 G/DL (6.4-8.3)
[2018-10-04 04:56] LABS: Basophils # 0.1 10*3/uL (0.0-0.2); Basophils % 3.9 % (0.0-0.8); Eosinophils % 2.4 % (0.00-10.9); Hematocrit 36.2 VOL% (35.7-47.0); Hemoglobin 11.7 GM/DL (12.0-16.0); Immature Granulocytes % 1.6 %; Immature Granulocytes Absolute 0.02 #; Lymphocytes % 2.4 % (21.3-54.2); Mean Corpuscular HGB Conc 32.3 GM/DL (32-36); Mean Corpuscular Volume 94.8 FL (87-102); Mean Platelet Volume 11.7 FL (9.6-12.0); Monocytes % 9.4 % (1.7-12.7); Neutrophils % 80.3 % (38.7-73.9); Platelet Count 44 T/CUMM (130-400); Red Blood Count 3.82 MC/CUMM (3.8-5.5); Red Cell Distribution Width 15.2 % (9.3-17.3); White Blood Count 1.3 T/CUMM (4-12)
[2018-10-04 06:14] LABS: Band Neutrophils 31 % (0-10); Eosinophils 1 % (0-10); Lymphocytes 1 % (20-55); Segmented Neutrophils 57 % (50-85); Total Cells Counted 100
[2018-10-04 06:15] LABS: Anisocytosis Slight; Microcytosis Slight; Platelet Estimate Decreased
[2018-10-04] MEDS: MAGNESIUM CHLORIDE 64 MG TABLET PO SCH ×2 (09:27→21:40)
[2018-10-04] MEDS: CHOLECALCIFEROL 1,000 UNIT TABLET PO SCH (09:27)
[2018-10-04] MEDS: SULFAMETHOX/TRIMETHOPRIM 800-160 MG TABLET PO SCH (09:27)
[2018-10-04] MEDS: APIXABAN 5 MG TABLET PO SCH ×2 (09:27→21:40)
[2018-10-04] MEDS: FILGRASTIM-SNDZ 300 MCG/0.5 ML SYRINGE SUBCUT SCH (09:27)
[2018-10-04] MEDS: GRANISETRON 1 MG/1 ML VIAL IV SCH (09:28)
[2018-10-04] MEDS: CYANOCOBALAMIN 100 MCG TABLET PO SCH (09:28)
[2018-10-05] MEDS: BENZONATATE 100 MG CAPSULE PO PRN (04:05)
[2018-10-05 06:18] LABS: Albumin 2.7 G/DL (3.4-5.0); Bilirubin,Total 0.6 MG/DL (0.2-1.0); Calcium 9.4 MG/DL (8.5-10.1); Total Protein 6.4 G/DL (6.4-8.3)
[2018-10-05] MEDS: ALBUTEROL/IPRATROPIUM 3 ML NEB RESP TX SCH ×4 (06:56→19:53)
[2018-10-05 07:37] LABS: Basophils # 0.1 10*3/uL (0.0-0.2); Basophils % 2.8 % (0.0-0.8); Eosinophils % 1.2 % (0.00-10.9); Hemoglobin 10.6 GM/DL (12.0-16.0); Immature Granulocytes % 12.7 %; Immature Granulocytes Absolute 0.32 #; Lymphocytes % 0.8 % (21.3-54.2); Mean Corpuscular HGB Conc 31.2 GM/DL (32-36); Mean Corpuscular Volume 97.7 FL (87-102); Mean Platelet Volume 12.6 FL (9.6-12.0); Monocytes % 9.6 % (1.7-12.7); Neutrophils % 72.9 % (38.7-73.9); Platelet Count 44 T/CUMM (130-400); Red Blood Count 3.48 MC/CUMM (3.8-5.5); Red Cell Distribution Width 15.2 % (9.3-17.3); White Blood Count 2.5 T/CUMM (4-12)
[2018-10-05 08:08] LABS: Band Neutrophils 7 % (0-10); Eosinophils 3 % (0-10); Hypochromasia 1+; Lymphocytes 3 % (20-55); Ovalocytes Slight; Platelet Estimate Decreased; Segmented Neutrophils 84 % (50-85); Total Cells Counted 100
[2018-10-05 08:09] LABS: Microcytosis Slight
[2018-10-05] MEDS: APIXABAN 5 MG TABLET PO SCH ×2 (08:57→20:36)
[2018-10-05] MEDS: MAGNESIUM CHLORIDE 64 MG TABLET PO SCH ×2 (08:57→20:36)
[2018-10-05] MEDS: POTASSIUM CHLORIDE 20 MEQ TABLET PO PRN ×3 (08:57→14:36)
[2018-10-05] MEDS: SULFAMETHOX/TRIMETHOPRIM 800-160 MG TABLET PO SCH (08:57)
[2018-10-05] MEDS: FILGRASTIM-SNDZ 300 MCG/0.5 ML SYRINGE SUBCUT SCH (08:58)
[2018-10-05] MEDS: GRANISETRON 1 MG/1 ML VIAL IV SCH (08:58)
[2018-10-05] MEDS: BISACODYL 5 MG TABLET PO PRN (08:58)
[2018-10-05] MEDS: CYANOCOBALAMIN 100 MCG TABLET PO SCH (08:58)
[2018-10-05] MEDS: CHOLECALCIFEROL 1,000 UNIT TABLET PO SCH (08:58)
[2018-10-05] MEDS: ONDANSETRON 4 MG/2 ML VIAL IV PRN (11:32)
[2018-10-06] MEDS: ALBUTEROL/IPRATROPIUM 3 ML NEB RESP TX SCH ×4 (01:22→19:15)
[2018-10-06 03:58] LABS: Basophils # 0.1 10*3/uL (0.0-0.2); Basophils % 1.9 % (0.0-0.8); Eosinophils % 0.6 % (0.00-10.9); Hematocrit 34.9 VOL% (35.7-47.0); Hemoglobin 10.7 GM/DL (12.0-16.0); Immature Granulocytes % 7.8 %; Immature Granulocytes Absolute 0.37 #; Lymphocytes # 0.1 10*3/uL (1.4-4.0); Lymphocytes % 1.3 % (21.3-54.2); Mean Corpuscular HGB Conc 30.7 GM/DL (32-36); Mean Corpuscular Volume 97.2 FL (87-102); Monocytes % 11.1 % (1.7-12.7); Neutrophils % 77.3 % (38.7-73.9); Platelet Count 49 T/CUMM (130-400); Red Blood Count 3.59 MC/CUMM (3.8-5.5); Red Cell Distribution Width 15.2 % (9.3-17.3); White Blood Count 4.8 T/CUMM (4-12)
[2018-10-06 04:20] LABS: Albumin 2.8 G/DL (3.4-5.0); Bilirubin,Total 0.5 MG/DL (0.2-1.0); Calcium 9.2 MG/DL (8.5-10.1); Total Protein 6.6 G/DL (6.4-8.3)
[2018-10-06 05:33] LABS: Band Neutrophils 8 % (0-10); Eosinophils 1 % (0-10); Hypochromasia Slight; Lymphocytes 4 % (20-55); Microcytosis Slight; Segmented Neutrophils 76 % (50-85); Total Cells Counted 100
[2018-10-06 05:34] LABS: Ovalocytes Slight; Platelet Estimate Decreased
[2018-10-06] MEDS: CHOLECALCIFEROL 1,000 UNIT TABLET PO SCH (08:50)
[2018-10-06] MEDS: CYANOCOBALAMIN 100 MCG TABLET PO SCH (08:50)
[2018-10-06] MEDS: MAGNESIUM CHLORIDE 64 MG TABLET PO SCH ×2 (08:50→20:14)
[2018-10-06] MEDS: SULFAMETHOX/TRIMETHOPRIM 800-160 MG TABLET PO SCH (08:50)
[2018-10-06] MEDS: GRANISETRON 1 MG/1 ML VIAL IV SCH (08:51)
[2018-10-06] MEDS: APIXABAN 5 MG TABLET PO SCH ×2 (08:51→20:14)
[2018-10-06] MEDS ORDERED: ALUMINUM/MAGNES/SIMETH MAX STR 30 ML UDCUP PO PRN (13:13)
[2018-10-06] MEDS: PANTOPRAZOLE 40 MG TABLET PO SCH (14:24)
[2018-10-06] MEDS: BENZONATATE 100 MG CAPSULE PO PRN (20:21)
[2018-10-06] MEDS: ONDANSETRON 4 MG/2 ML VIAL IV PRN (20:26)
[2018-10-07] MEDS: ALBUTEROL/IPRATROPIUM 3 ML NEB RESP TX SCH ×2 (01:35→07:54)
[2018-10-07 08:10] LABS: Basophils # 0.1 10*3/uL (0.0-0.2); Basophils % 1.6 % (0.0-0.8); Eosinophils % 0.5 % (0.00-10.9); Hematocrit 36.1 VOL% (35.7-47.0); Hemoglobin 11.1 GM/DL (12.0-16.0); Immature Granulocytes % 10.6 %; Immature Granulocytes Absolute 0.41 #; Lymphocytes # 0.1 10*3/uL (1.4-4.0); Lymphocytes % 1.8 % (21.3-54.2); Mean Corpuscular HGB Conc 30.7 GM/DL (32-36); Mean Corpuscular Volume 97.3 FL (87-102); Mean Platelet Volume 12.2 FL (9.6-12.0); Monocytes % 19.2 % (1.7-12.7); Neutrophils % 66.3 % (38.7-73.9); Platelet Count 66 T/CUMM (130-400); Red Blood Count 3.71 MC/CUMM (3.8-5.5); Red Cell Distribution Width 15.4 % (9.3-17.3); White Blood Count 3.9 T/CUMM (4-12)
[2018-10-07 08:26] LABS: Albumin 3.1 G/DL (3.4-5.0); Bilirubin,Total 0.5 MG/DL (0.2-1.0); Calcium 9.9 MG/DL (8.5-10.1); Osmolality,Calculated 279.3 MOS/KG (273-304)
[2018-10-07 08:45] LABS: Band Neutrophils 32 % (0-10); Eosinophils 1 % (0-10); Lymphocytes 8 % (20-55); Segmented Neutrophils 49 % (50-85); Total Cells Counted 100
[2018-10-07 08:46] LABS: Platelet Estimate Decreased
[2018-10-07 08:47] LABS: Anisocytosis 1+
[2018-10-07] MEDS: CYANOCOBALAMIN 100 MCG TABLET PO SCH (09:06)
[2018-10-07] MEDS: CHOLECALCIFEROL 1,000 UNIT TABLET PO SCH (09:06)
[2018-10-07] MEDS: SULFAMETHOX/TRIMETHOPRIM 800-160 MG TABLET PO SCH (09:06)
[2018-10-07] MEDS: PANTOPRAZOLE 40 MG TABLET PO SCH (09:06)
[2018-10-07] MEDS: MAGNESIUM CHLORIDE 64 MG TABLET PO SCH (09:07)
[2018-10-07] MEDS: APIXABAN 5 MG TABLET PO SCH (09:07)
[2018-10-07] MEDS: GRANISETRON 1 MG/1 ML VIAL IV SCH (09:08)
[2018-10-07] MEDS: LOPERAMIDE 0.2 MG/ML 30 ML/BOTTLE PO PRN (09:08)
[2018-10-07 09:25] VITALS: BP 103/72
== END 2018-10-07 11:05 | disposition swing bed (61) | DRG 840 ==
LOC: EDUNIT# → N.ED 16:00 → N.EDINP 16:00 → SUATTDRO 19:13 → N.4E 19:38 → SUATTDRO 09-17 15:03
PROVIDERS: ADMIT Internal Medicine; ATTEND Family Medicine
PROC: BRONCHB (2018-09-18 07:35)

== ENCOUNTER 2018-10-23 13:55 | Inpatient (IN) ==
[2018-10-23] MEDS ORDERED: ACETAMINOPHEN 650 MG SUPP RECTAL PRN (14:34)
[2018-10-23] MEDS ORDERED: chlorproMAZINE INJ 50 MG in SODIUM CHLORIDE 0.9% 100 ML IV PRN (14:34)
[2018-10-23] MEDS ORDERED: MORPHINE INJ 100 MG in SODIUM CHLORIDE 0.9% 90 ML IV SCH (15:00)
[2018-10-25] MEDS ORDERED: fentaNYL 75 MCG/HR PATCH TRANSDERM SCH (09:00)
== END 2018-10-23 18:34 | disposition expired | DRG 951 ==
LOC: N.4E 13:55
PROVIDERS: ADMIT Specialist; ATTEND Specialist